=== PATIENT | male | born 1935 | race Caucasian/White ===

== ENCOUNTER 2019-09-01 10:06 | Inpatient (IN) ==
[2019-09-01] MEDS ORDERED: ASPIRIN PO ONE (10:19)
[2019-09-01] MEDS ORDERED: CARDIZEM IV ONE (10:20)
--- NOTE | 2019-09-01 10:35 | EKG Report ---
Test Performed on : 09/01/2019 10:11:25 AM Test Reason : cp Blood Pressure : / mmHG Vent. Rate : 124 BPM Atrial Rate : 141 BPM P-R Int : 000 ms QRS Dur : 140 ms QT Int : 382 ms P-R-T Axes : 000 -35 102 degrees QTc Int : 548 ms Atrial fibrillation. with rapid ventricular response. with premature ventricular or aberrantly conduc bailey complexes. Left axis deviation Left bundle branch block Abnormal ECG When compared with ECG of 20-JUN-2017 13:18, Atrial fibrillation. has replaced Sinus rhythm. Vent. rate has increased BY 68 BPM Left bundle branch block is now present Unconfirmed Result
--- NOTE | 2019-09-01 10:38 | Diag Imaging Result Doc PS360 ---
CHEST-PORTABLE - 09/01/2019 INDICATION: cp COMPARISON: 05/16/2018 FINDINGS: The lungs are normally expanded and clear. Heart size and mediastinal contours are normal. No pneumothorax or pleural effusion. IMPRESSION: Negative exam. Electronically signed by Ravinder Osman 09/01/2019 10:36 AM
[2019-09-01 10:42] LABS: BASO# 0.05 X1000 (0.0-0.2); BASO% 0.4 % (0.0-0.8); EOS# 0.13 X1000 (0.0-0.7); EOS% 1.1 % (0.0-10.0); HEMATOCRIT 47.5 % (42.0-52.0); HEMOGLOBIN 15.4 g/dL (14.0-18.0); IMM GRAN# 0.06 X1000 (0.0-0.04); IMM GRAN% 0.5 % (0.0-0.5); LYMPH# 1.85 X1000 (1.2-3.4); LYMPH% 15.4 % (20.5-51.1); MCHC 32.4 g/dL (33-37); MCV 92.6 FL (81-99); MONO# 0.96 X1000 (0.11-0.59); MPV 9.7 FL (7.4-10.4); NEUT# 8.95 X1000 (1.4-6.5); NEUT% 74.6 % (42.2-75.2); PLT 312 X1000 (130-400); RBC 5.13 XMIL (4.7-6.1); RDW 12.5 % (11.5-14.5)
[2019-09-01 10:54] LABS: INR 1.06; PROTIME 13.9 Seconds (11.0-16.0)
[2019-09-01 10:55] LABS: PTT 28.1 Seconds (22.3-41.8)
[2019-09-01 11:01] LABS: ALB/GLOB RATIO 1.7; ALBUMIN 4.5 g/dL (3.5-5.0); CALCIUM 9.6 mg/dL (8.8-10.2); CREATININE 1.5 mg/dL (0.7-1.2); POTASSIUM 4.5 mmol/L (3.5-5.1); TOTAL BILIRUBIN 0.49 mg/dL (0.20-1.00); TOTAL PROTEIN 7.2 g/dL (6.3-8.3)
[2019-09-01] MEDS ORDERED: LASIX IV ONE (11:27)
--- NOTE | 2019-09-01 11:35 | PROVIDER DOCUMENTATION ---
This chart was entered by Griselda Hopper Scribe, acting as scribe for Pepe Mcdermott MD. HPI-Cardiac General - General Stated Complaint: "HEART OUT OF RHYTHM" HEART PT Time Seen by Provider: 09/01/19 10:19 Source: patient Allergies/Adverse Reactions: Patient Allergies Allergy/AdvReac Type Severity Reaction Status Date / Time No Known Allergies Allergy Verified 06/20/17 11:34 Home Medications: Home Medication List Medication Instructions Recorded Confirmed Last Taken Type Amiodarone [Cordarone] 100 mg PO BID 08/03/12 06/20/17 02/08/13 06:00 History Atenolol [Tenormin] 25 mg PO DAILY PRN 08/03/12 06/20/17 01/24/13 06:00 History Hydrochlorothiazide 25 mg PO QAM 08/03/12 06/20/17 04/08/15 07:00 History Levothyroxine [Synthroid] 75 microgm PO QAM 08/03/12 06/20/17 04/08/15 07:00 History Metformin [Glucophage] 500 mg PO WBREAKFAST 02/08/13 06/20/17 04/08/15 17:00 History Hydrocodone/Acetaminophen [Palisade 1 each PO Q4H PRN PRN #15 tablet 04/09/15 0 06/20/17 Unknown Rx 10-325 Tablet] Tamsulosin [Flomax] 0.4 mg PO DAILY #15 capsule 04/09/15 06/20/17 Unknown Rx Apixaban [Eliquis] 5 mg PO BID 06/12/17 06/20/17 Unknown History Glimepiride 2 mg PO BID 06/12/17 06/20/17 Unknown History LISINOpril [Prinivil] 5 mg PO DAILY #0 06/14/17 06/20/17 04/08/15 17:00 Rx Nitroglycerin Sl [Nitroglycerin] 0.4 mg SL PRN PRN #100 tab 06/20/17 Unknown Rx - History of Present Illness-Cardiac Nature of Presenting Problem: 83 y/o male with history of atrial fibrillation presents to the ED with complaint of "heart out of rhythm" for 4-5 days. The patient states he was seen by a physician last week and had EKG done and found to be in a-fib. The patient also states SOB and can't think straight or remember things well. Denies cough, fever, and swelling. Quality of Pain: reports: none Onset/Duration: other (4-5 days ago) Timing: still present Palpitation Quality: irregular History of arrythmia: reports: A-Fib Associated Symptoms: reports: shortness of breath. denies: fever/chills, swelling/lump in chest, vomiting Similar Symptoms Previously?: Yes Recently Seen Here or By Another Healthcare Provider: Yes Review of Systems - Adult - REVIEW OF SYSTEMS - ADULT Constitutional: denies: chills, fever, weight gain Cardiovascular: reports: irregular heart rate. denies: chest pain, syncope Respiratory: reports: shortness of breath. denies: cough, hemoptysis Past History - Adult - PAST MEDICAL HISTORY-ADULT Review of Records: reports: Old Records Reviewed, Nursing Assessment Review, Medications Reviewed Cardiovascular: reports: A-Fib, HTN Genitourinary: reports: prostate cancer Endocrine/Immune: reports: Diabetes, thyroid disorder (hypo) - PRIOR SURGERIES/PROCEDURES Surgical/Procedure History: reports: cholecystectomy, other (prostectomy, cardioversion) - IMMUNIZATION STATUS Childhood Immunizations: See Nurse Assessment Flu Vaccine: See Nurse Assessment - FAMILY HISTORY Family History: reviewed, not pertinent - SOCIAL HISTORY Smoking: other (former smoker) Physical Exam-General - PHYSICAL EXAM-ADULT Initial Vital Signs Reviewed: Yes - CONSTITUTIONAL General Appearance: alert, no apparent distress - HEAD, EARS, NOSE, MOUTH & THROAT HENMT: normocephalic/atraumatic, moist mucous membranes - NECK Neck: full range of motion, supple - RESPIRATORY Respiratory: lungs clear, normal breath sounds, no respiratory distress. negative: rales, rhonchi, wheezing - CARDIOVASCULAR Cardiovascular: tachycardia, irregularly irregular - MUSCULOSKELETAL Extremity: normal gait - SKIN Integumentary: normal color, warm/dry. negative: diaphoresis - NEUROLOGIC Neurologic: grossly normal - PSYCHIATRIC Psych/Mental Status: normal mood/affect, normal thought content, normal thought process Progress - PLAN OF CARE/RESULTS Progress/Plan/Lab Results: Vital Signs - 8 hr 09/01/19 10:13 09/01/19 10:42 09/01/19 10:43 Temperature 98.8 F Pulse Rate 121 H 124 H 112 H Respiratory Rate 18 14 26 H Blood Pressure 159/91 144/128 154/98 O2 Sat by Pulse Oximetry 97 99 99 09/01/19 10:46 09/01/19 10:49 09/01/19 10:51 Temperature Pulse Rate 99 H 88 80 Respiratory Rate 18 16 19 Blood Pressure 129/90 148/92 134/95 O2 Sat by Pulse Oximetry 99 99 98 Laboratory Results - last 24 hr 09/01/19 09/01/19 09/01/19 10:22 10:22 10:22 WBC RBC Hgb Hct MCV MCH MCHC RDW Std Deviation Plt Count MPV Immature Gran % (Auto) Neut % (Auto) Lymph % (Auto) [place] % (Auto) Eos % (Auto) Baso % (Auto) Immature Gran # (Auto) Neut # (Auto) Lymph # (Auto) [place] # (Auto) Eos # (Auto) Baso # (Auto) PT INR PTT (Actin FS) Sodium 134 L Potassium 4.5 Chloride 96 L Carbon Dioxide 25 Anion Gap 13 BUN 18 Creatinine 1.5 H Estimated GFR/1.73 m2 45 BUN/Creatinine Ratio 12 Glucose 139 H Calculated Osmolality 272 Calcium 9.6 Magnesium 2.0 Total Bilirubin 0.49 AST 32 ALT 24 Alkaline Phosphatase 52 Creatine Kinase 85 Troponin T High Sens Jpe-M-Xptdyvbvwbo Pept 5093 H Total Protein 7.2 Albumin 4.5 Globulin 2.7 Albumin/Globulin Ratio 1.7 TSH 1.45 09/01/19 09/01/19 09/01/19 10:22 10:22 10:22 WBC 12.00 H RBC 5.13 Hgb 15.4 Hct 47.5 MCV 92.6 MCH 30.0 MCHC 32.4 L RDW Std Deviation 12.5 Plt Count 312 MPV 9.7 Immature Gran % (Auto) 0.5 Neut % (Auto) 74.6 Lymph % (Auto) 15.4 L [place] % (Auto) 8.0 Eos % (Auto) 1.1 Baso % (Auto) 0.4 Immature Gran # (Auto) 0.06 H Neut # (Auto) 8.95 H Lymph # (Auto) 1.85 [place] # (Auto) 0.96 H Eos # (Auto) 0.13 Baso # (Auto) 0.05 PT 13.9 INR 1.06 PTT (Actin FS) 28.1 Sodium Potassium Chloride Carbon Dioxide Anion Gap BUN Creatinine Estimated GFR/1.73 m2 BUN/Creatinine Ratio Glucose Calculated Osmolality Calcium Magnesium Total Bilirubin AST ALT Alkaline Phosphatase Creatine Kinase Troponin T High Sens 20 H Rol-M-Mezwvxbmlqd Pept Total Protein Albumin Globulin Albumin/Globulin Ratio TSH Orders Category Date Time Status Cardiac Monitoring DIRECTED Care 09/01/19 10:19 Active NEWS Score 2-4:Order NEWS Lactate Series NOW Care 09/01/19 10:15 Active Nursing- Obtain EKG once Care 09/01/19 11:27 Active Oxygen Therapy- ED Nursing DIRECTED Care 09/01/19 10:19 Active Saline Loc NOW Care 09/01/19 10:19 Active CHEST-PORTABLE [RAD] Stat Exams 09/01/19 10:19 Completed CBC WITH ELECTRONIC DIFF [HEME] Stat Lab 09/01/19 10:22 Completed CK PROFILE [SP CHEM] Stat Lab 09/01/19 10:22 Completed COMPREHENSIVE METABOLIC PANEL [CHEM] Stat Lab 09/01/19 10:22 Completed MAGNESIUM [CHEM] Stat Lab 09/01/19 10:22 Completed PRO B-NATRIURETIC PEPTIDE Stat Lab 09/01/19 10:22 Completed PROTIME WITH INR [COAG] Stat Lab 09/01/19 10:22 Completed PTT [COAG] Stat Lab 09/01/19 10:22 Completed TROPONIN T HIGH SENSITIVITY Stat Lab 09/01/19 10:22 Completed TSH Stat Lab 09/01/19 10:22 Completed Aspirin Med 09/01/19 10:19 Discontinued 325 mg PO NOW ONE Diltiazem [Cardizem] Med 09/01/19 10:20 Discontinued 20 mg IV NOW ONE Furosemide [Lasix] Med 09/01/19 11:27 Discontinued 40 mg IV NOW ONE CP/SOB/Palp >45 yrs of Age Stat Oth 09/01/19 10:19 Ordered EKG [EKG] Stat Ther 09/01/19 10:19 Draft EKG [EKG] Stat Ther 09/01/19 11:27 Ordered Result Diagrams: 09/01/19 10:22 09/01/19 10:22 - REASSESSMENT Reassessment #1 Time Reassessed: 11:29 Status: improving (given diltiazem for rate control. Also given ASA for cp and lasix for chf. HR 80-90, but still afib states feels better.) Reassessment Comment: discussed need for observation - EKG 1 Time of EKG reading by physician:: 10:13 EKG Read and Signed by:: Pepe Mcdermott EKG Interpretation (*Must complete 3 of following elements*): Abnormal Rate: 124 Rhythm: a-fib w/RVR with premature ventricular or aberrantly conduced complexes Mathews: left Comments: left BBB, no STEMI - XRAY 1 XRAY Study: Chest (CHEST-PORTABLE - 09/01/2019 INDICATION: cp COMPARISON: 05/16/2018 FINDINGS: The lungs are normally expanded and clear. Heart size and mediastinal contours are normal. No pneumothorax or pleural effusion. IMPRESSION: Negative exam. Electronically signed by Ravinder Osman 09/01/2019 10:36 AM) Impression: Normal - CONSULTS/PCP/HOSPITALIST Notification #1 *Consult/PCP/Hospitalist*: Hospitalist paged at 1130 Time Discussed: 11:34 Consult Disposition: Will see in ED, Admit Departure - Departure Date of Disposition Decision: 09/01/19 Time of Disposition Decision: 11:30 DIAGNOSIS: Paroxysmal atrial fibrillation with RVR, CHF (NYHA class III, ACC/AHA stage C) Disposition: ADMITTED INPATIENT 09 Certified Medical Emergency: Emergent Condition: Fair Referrals and Follow-Ups: Talon Raman MD [Primary Care Provider] - - Critical Care Note This patient required my direct & personal management of CC.: Yes Total Time (mins): 35 Critical Care Statement: This patient required my direct personal management to treat or rule out processes, the absence of which, could potentiallly result in sudden, clinically significant life or limb threatening deterioration. Attestation - Physician/ DAVIDE Attestation Patient care was provided by Advanced Practice Provider:: No The physician spent face to face time with patient:: Yes Advanced Practice Provider documentation review:: Supervising physician onsite and consulted in the evaluation and care of this patient. The physician did have a face to face encounter with the patient. This chart was documented by the indicated scribe, (Griselda Hopper, Rufina) and accurately reflects the services I performed and decisions made by me, Pepe Mcdermott MD, as attested by the provider's signature.
[2019-09-01] MEDS ORDERED: TYLENOL PO PRN (12:11)
[2019-09-01] MEDS ORDERED: ZOFRAN IV PRN (12:11)
--- NOTE | 2019-09-01 13:14 | EKG Report ---
Test Performed on : 09/01/2019 12:26:47 PM Test Reason : repeat ekg Blood Pressure : / mmHG Vent. Rate : 094 BPM Atrial Rate : 113 BPM P-R Int : 000 ms QRS Dur : 130 ms QT Int : 426 ms P-R-T Axes : 000 -24 096 degrees QTc Int : 532 ms Undetermined rhythm Left bundle branch block Abnormal ECG When compared with ECG of 01-SEP-2019 10:11, (Unconfirmed) Current undetermined rhythm precludes rhythm comparison, needs review Unconfirmed Result
--- NOTE | 2019-09-01 16:05 | HISTORY AND PHYSICAL ---
CHIEF COMPLAINT: Atrial fibrillation, shortness of breath. HPI: This is an 83-year-old gentleman with history of paroxysmal atrial fibrillation who presents to the emergency room complaining of palpitations and shortness of breath that had been present for 4 to 5 days. He states that he saw his primary care provider last week, was found to be in atrial fibrillation and she changed some of his medications around. He states that he remained in atrial fibrillation and that over the last 3 to 4 days, heart rates have progressively increased till they were in the 160s today, he was having some dizziness, generalized weakness and difficulty walking. He stated he denied any chest pain during this time. On arrival to the emergency room he had heart rates in the 120s. He was noted to be in atrial fibrillation. He was given Cardizem 20 mg and rate dropped into the 80s and 90s. He has remained 90 to 103. He does state that shortness of breath has resolved since heart rates have slowed down. Mr. Velarde has a history of atrial fibrillation. He underwent a direct current cardioversion in 2016 and he states he has not felt that he was in atrial fibrillation since up until this last week. PAST MEDICAL HISTORY: 1. Paroxysmal atrial fibrillation. 2. Diabetes mellitus type 2. 3. Hyperlipidemia. 4. Hypertension. 5. Hypothyroid. 6. Chronic kidney disease. 7. History of prostate cancer status post prostatectomy. PAST SURGICAL HISTORY: Left knee surgery, cholecystectomy, prostatectomy, direct current CV x3 and colonoscopy ever 5 years. SOCIAL HISTORY: He quit smoking in 1975 he smoked for 25 years 1 pack a day. He denies alcohol or illicit drug use. ALLERGIES: No stated drug allergies. FAMILY HISTORY: Mother, grandfather and siblings have diabetes mellitus. HOME MEDICATIONS: List will be obtained by the hospital staff and once verified will review and restart as appropriate. REVIEW OF SYSTEMS: Discussed with the patient with pertinent positives stated in the HPI. He denied any syncope, any chest pain, productive cough, fevers or chills, any nausea, vomiting, diarrhea, constipation, black or bloody vomitus or stools any hematuria, dysuria, frequency, urgency. PHYSICAL EXAMINATION: GENERAL: This is an 83-year-old gentleman who is sitting up on the stretcher in the emergency room in no distress. VITAL SIGNS: Blood pressure is 133/81 with a heart rate of 93, temperature is 97.3 degrees. He remains in atrial fibrillation. HEENT: Pupils equal, round, react to light. EOMs are intact. Sclerae are anicteric. Head is normocephalic, atraumatic. Mucous membranes are moist. NECK: Supple with trachea midline. CARDIOVASCULAR: Irregularly irregular rate and rhythm. S1 and S2 appreciated. He denies any calf tenderness. Bilateral peripheral pulses are palpable x4 extremities. PULMONARY: Breath sounds are clear with no increased work of breathing noted. Chest rise falls symmetric with respiration. GASTROINTESTINAL: Abdomen soft, nontender, nondistended, bowel sounds in all 4 quadrants. NEUROLOGIC: He is alert and oriented x3. SKIN: Warm and dry. LABS: WBC is 12, hemoglobin is 15.4, hematocrit 47.5, and platelets 312,000. Sodium 134, potassium 4.5, BUN 18, creatinine 1.5 with a glucose of 139. Troponin T is 20. Chest x-ray negative exam. ASSESSMENT AND PLAN: 1. Atrial fibrillation with rapid ventricular response. 2. History of congestive heart failure with an ejection fraction of 55% per echocardiogram in 2018. 3. Hypothyroid. 4. Diabetes mellitus. 5. Hypertension. PLAN: 1. The patient will be started on a Cardizem drip. He will be admitted to [facility] for close monitoring. Will identify his home medications and continue. 2. We will consult Dr. Danielle in Cardiology. 3. Will continue to trend troponins. 4. Check a CBC and BMP in the morning. 5. He will be placed on pattern blood glucose with sliding scale insulin. 6. Further treatments pending hospital course. Dictated by VILMA Sifuentes for Nina Amezcua MD cc: VILMA Sifuentes MD
--- NOTE | 2019-09-01 16:43 | CONSULTATION ---
DATE OF CONSULTATION: 09/01/2019 IMPRESSION: 1. Recurrent atrial fibrillation with mild tachycardia. The patient apparently went into atrial fibrillation despite amiodarone which was recently discontinued. He is minimally symptomatic. 2. Paroxysmal atrial fibrillation in the past. 3. Hypertensive cardiovascular disease. 4. Acquired hypertrophic obstructive physiology. 5. Type 2 diabetes mellitus. 6. Hyperlipidemia. RECOMMENDATIONS: 1. Continue long-term anticoagulation with Eliquis. 2. Increase beta femi as required to achieve satisfactory rate control. 3. Conservative cardiovascular management overall. HISTORY: This 83-year-old white male with a past history of paroxysmal atrial fibrillation, longstanding hypertension, hypertensive cardiovascular disease with acquired hypertrophic obstructive cardiomyopathy physiology, hyperlipidemia, and type 2 diabetes mellitus was admitted to the emergency room after he presented with vague symptoms and was found to be in atrial fibrillation with [id number] tachycardia. He is normally followed by Dr. Fracisco Grady who last saw him in our office in June of 2018. He is in sinus rhythm at that time on amiodarone 200 mg. He has had some mild palpitations and was seen by his primary care provider Dr. Raman 2 weeks ago. Amiodarone was reportedly withdrawn and he has been taking beta femi since then. He has had some difficulty with memory and this began concern him and make him anxious. He denies any chest pain or shortness of breath. He continues with some mild palpitations. He is very apprehensive regarding his health, which prompted him to have his son bring him to the emergency room for evaluation. PAST MEDICAL HISTORY: 1. Paroxysmal atrial fibrillation dating back 9 years. 2. Hypertensive cardiovascular disease. 3. Acquired hypertrophic obstructive cardiomyopathy physiology. 4. Hyperlipidemia. 5. Type 2 diabetes mellitus. 6. Hypothyroidism. 7. Chronic kidney disease. 8. Prostate cancer and previous prostatectomy. PAST SURGICAL HISTORY: Also includes unspecified left knee surgery, cholecystectomy, prostatectomy. ALLERGIES: He has no known drug allergies. MEDICATIONS PRIOR TO ADMISSION: As listed. SOCIAL HISTORY: He has a history of previous cigarette use, discontinued more than forty years ago. He previously smoked 1 pack of cigarettes per day. He does not use alcohol. FAMILY HISTORY: Negative for premature coronary disease. REVIEW OF SYSTEMS: Pulmonary: Negative. Gastrointestinal: Negative. Constitutional: Negative. The remainder of the review of systems is negative/noncontributory with 14 total systems reviewed. PHYSICAL EXAMINATION: General: This is a pleasant elderly white male in no distress on room air. Vital signs: Blood pressure 137/85, heart rate 115 with ECG showing atrial fibrillation, oxygen saturation 99% on room air. HEENT: Extraocular movements are intact. Mucous membranes are moist. Neck: Supple without jugular venous distention. Chest: Clear to auscultation bilaterally. Cardiac: Reveals a irregular rate and rhythm without appreciable murmur or gallop. Abdomen: Soft. Bowel sounds are normal. Extremities: Without edema. Neurologic: Reveals him to be alert and fully oriented. Speech is fluent. He moves all 4 extremities equally well. Skin: Warm and dry. Psychiatric: Reveals his mood to be appropriate. IMAGING DATA: Twelve lead EKG demonstrates atrial fibrillation, left axis deviation, and left bundle branch block. Heart rate is 124 beats per minute. LABORATORY DATA: Includes white blood cell count of 12.0, hematocrit 47.5, hemoglobin 15.4, platelet count 312,000. Sodium 134, potassium 4.5 chloride 96, carbon dioxide 25, BUN 18, creatinine 1.5, glucose 139, troponin T 18, albumin 4.5, TSH 1.45. cc: Brian Danielle MD
[2019-09-01] MEDS: LOPRESSOR PO SCH ×2 (16:58→20:38)
[2019-09-01] MEDS: HUMALOG SUBQ SCH ×2 (16:58→20:39)
[2019-09-01] MEDS: ELIQUIS PO SCH (20:39)
[2019-09-02 05:59] LABS: HEMATOCRIT 40.9 % (42.0-52.0); HEMOGLOBIN 13.6 g/dL (14.0-18.0); MCH 30.8 PG (27-31); MCHC 33.3 g/dL (33-37); MCV 92.7 FL (81-99); MPV 9.4 FL (7.4-10.4); RBC 4.41 XMIL (4.7-6.1); RDW 12.5 % (11.5-14.5); WBC 9.14 X1000 (4.8-10.8)
[2019-09-02 06:24] LABS: CALCIUM 8.6 mg/dL (8.8-10.2); CREATININE 1.6 mg/dL (0.7-1.2); POTASSIUM 4.1 mmol/L (3.5-5.1)
[2019-09-02] MEDS: HUMALOG SUBQ SCH ×3 (06:28→16:32)
[2019-09-02] MEDS ORDERED: SYNTHROID PO SCH ×2 (07:00)
--- NOTE | 2019-09-02 07:08 | EKG Report ---
Test Performed on : 09/02/2019 06:43:23 AM Test Reason : a fib Blood Pressure : / mmHG Vent. Rate : 103 BPM Atrial Rate : 227 BPM P-R Int : 000 ms QRS Dur : 138 ms QT Int : 418 ms P-R-T Axes : 000 -21 099 degrees QTc Int : 547 ms Atrial fibrillation. with rapid ventricular response. Left bundle branch block Abnormal ECG When compared with ECG of 01-SEP-2019 12:26, (Unconfirmed) No significant change was found Confirmed by Peter Astorga MD ([id number]) on 09/04/2019 3:20:25 PM
[2019-09-02] MEDS: LOPRESSOR PO SCH (08:07)
[2019-09-02] MEDS: ELIQUIS PO SCH (08:07)
--- NOTE | 2019-09-02 14:22 | PROGRESS NOTE ---
DATE: 09/02/2019 SUBJECTIVE: Patient continues without chest discomfort or shortness of breath on room air. He continues with atrial fibrillation and appears to have adequate rate control on telemetry. OBJECTIVE: Blood pressure 133/100, heart rate 99, with ECG monitor showing atrial fibrillation. Oxygen saturation 99%. There is no significant jugular venous distention. Chest is clear to auscultation. Cardiac Examination: Reveals an irregular rate and rhythm without appreciable murmur or gallop. There is no evidence of peripheral edema. Laboratory Data: Includes a white blood cell count of 9.14, hematocrit 40.9, hemoglobin 13.6, platelet count 287,000. Sodium 136, potassium 4.1, chloride 98, carbon dioxide 28, BUN 20, creatinine 1.6, glucose 91. IMPRESSION: 1. Recurrent atrial fibrillation despite amiodarone. Amiodarone recently discontinued. Patient appears to demonstrate adequate rate control on metoprolol presently. Plan is to treat with rate control anticoagulation for now. 2. Hypertensive cardiovascular disease. 3. Acquired hypertrophic obstructive physiology. 4. Type 2 diabetes mellitus. 5. Hyperlipidemia. RECOMMENDATIONS: 1. Continue long-term anticoagulation with Eliquis. 2. Continue current metoprolol. 3. Ambulate patient. If adequate rate control evident, it is reasonable for him to be discharged to home this evening to follow up with Dr. Grady, his regular shoe worker, in the next 2 weeks. cc: Brian Danielle MD
[2019-09-02 16:13] VITALS: BP 138/90
--- NOTE | 2019-09-02 16:19 | ECHO REPORT ---
ORDER DATE: 09/02/2019 ECHOCARDIOGRAPHIC MEASUREMENTS: 1. Interventricular septum 1.4. 2. Left ventricular posterior wall 1.4. 3. Diastolic diameter 4.5. 4. Left atrium 5.3. 5. Aorta 3.6. 6. There is severe left atrial enlargement. 7. There is right atrial enlargement. 8. Aortic valve leaflets are trileaflet. 9. Mitral valve was normal. 10. Tricuspid valve was normal. 11. Peak velocity across the aortic valve less than 2 m/sec. There is no aortic stenosis. There is mild aortic regurgitation. 12. The patient was in atrial fibrillation. 13. Indeterminate diastolic function. 14. There is mild to moderate mitral regurgitation, mild tricuspid regurgitation. 15. Peak velocity across the tricuspid valve was 2.9 m/sec. 16. Pulmonary artery systolic pressure of 48 mmHg. 17. Normal left ventricular cavity size. 18. Estimated ejection fraction of 50% to 55%. 19. There is mild pulmonary regurgitation. 20. There is no pericardial effusion or obvious intracardiac mass or thrombus seen. cc: MD Lizz Echeverria CRNP
--- NOTE | 2019-09-06 16:10 | DISCHARGE SUMMARY ---
ADMISSION DATE: 09/01/2019 DISCHARGE DATE: 09/02/2019 FINAL DISCHARGE DIAGNOSES: 1. Persistent atrial fibrillation. 2. Hypertension. 3. Diabetes mellitus type 2. 4. Hyperlipidemia. 5. Hypothyroidism CONSULTATIONS: Cardiology consultation with Dr. Danielle. HOSPITAL COURSE: Mr. Velarde is an 83-year-old male with a history of atrial fibrillation who presented to the ER with a chief complaint of palpitations and shortness of breath. Upon arrival, the patient was noted to be in atrial fibrillation with RVR with a heart rate in the 160s. In the ER the patient was given 20 mg of Cardizem and his heart rate improved into the 80 and 90 range. The patient was admitted to [facility] and Cardiology was consulted. The patient underwent an echocardiogram that revealed an EF of 50 to 55 percent. Adjustments were made to the patient's rate control medications. The Toprol was increased to twice a day and the patient was encouraged to continue on his Eliquis. The patient improved with the medication adjustments. It Was recommended by the store director that the patient follow up as outpatient with Dr. Grady in the next 2 weeks for further discussion. The patient was cleared for discharge home on 09/02/2019. DISCHARGE MEDICATIONS: 1. Eliquis 5 mg oral twice a day. 2. Lopressor 25 mg oral twice a day. 3. Lisinopril 5 mg oral daily. 4. Synthroid 88 mcg oral every morning. 5. Amaryl 2 mg oral twice a day. 6. Fenofibrate 145 mg oral at bedtime. 7. Nitroglycerin sublingual 0.4 mg p.r.n. for chest pain. DISCHARGE DIET: 1800 ADA diet low-sodium diet. ACTIVITY: As tolerated. FOLLOW-UP INSTRUCTIONS: The patient will need to follow up with Dr. Grady in 2 weeks. The patient will also need to follow up with Dr. Raman in 2 to 3 weeks. cc: Nina Amezcua MD [facility]
== END 2019-09-02 18:14 | disposition home or self-care (01) | DRG 309 ==
LOC: ED 10:06 → 2N 13:22
PROVIDERS: ATTEND Internal Medicine